=== PATIENT | female | born 1975 | race Caucasian/White ===

== ENCOUNTER 2022-06-02 08:16 | Outpatient (CLI) | payer OTHER, SELFPAY | END 2022-06-02 08:17 | disposition home or self-care (01) | LOC: ANHAUDASC 08:17 | PROVIDERS: PCP Internal Medicine | DX: H90.42 Sensorineural hearing loss, unilateral, left ear, with unrestricted hearing on the contralateral side (principal); H90.71 Mixed conductive and sensorineural hearing loss, unilateral, right ear, with unrestricted hearing on the contralateral side | CPT/HCPCS: 92557; 92567 ==